=== PATIENT | female | born 1930 | race Caucasian/White ===

== ENCOUNTER 2018-07-13 09:53 | Inpatient (IN) ==
[2018-07-13] MEDS ORDERED: Isovue-370 500 ML INFUS..BTL IV ONE (10:28)
[2018-07-13 11:02] LABS: Basophils # 0.1 K/mcL (0.0-0.2); Basophils % 0.5 %; Eosinophils # 0.2 K/mcL (0.0-0.6); Eosinophils % 1.7 %; Hematocrit 31.6 % (35.3-44.9); Hemoglobin 10.2 g/dL (11.5-15.4); Immature Granulocytes % 2.9 % (0-4); Lymphocytes # 0.8 K/mcL (0.6-4.6); Lymphocytes % 7.1 %; Mean Corpuscular HGB Conc 32.3 g/dL (31.6-35.5); Mean Corpuscular Volume 92.9 fL (83.0-100.0); Mean Platelet Volume 9.8 fL (9.4-12.4); Monocytes # 0.7 K/mcL (0.0-1.3); Monocytes % 5.9 %; Neutrophils # 9.2 K/mcL (1.6-8.9); Platelet Count 343 K/mcL (140-400); Red Cell Distribution Width 13.2 % (11.5-14.5); Segmented Neutrophils % 81.9 %
[2018-07-13 11:06] LABS: Albumin 3.8 g/dL (3.5-5.7); Bilirubin,Total 0.3 mg/dL (0.3-1.0); Calcium 9.9 mg/dL (8.6-10.3); Globulin 3.7 g/dL (2.4-3.5); Potassium 4.4 mEq/L (3.5-5.1); Total Protein 7.5 g/dL (6.4-8.9)
--- NOTE | 2018-07-13 11:07 | Emergency Department Note ---
Disposition Clinical Impression: Abscess of great toe, right Disposition: Admitted As Inpatient Extremity Problem HPI - General Chief complaint: ED Extremity Problem,Nontraumatic Stated complaint: R Greater Toe Injury Time Seen by Provider: 07/13/18 10:00 Source: patient Mode of arrival: ambulatory Limitations: no limitations Nursing Notes Reviewed: Yes Vital Signs Reviewed: Yes - History of Present Illness HPI Narrative: 88 year old female with a history of diabetes presents with right great toe swelling. Patient stated she had a injury and fracture in right great toe two weeks ago. Pt was prescribed Keflex 500 mg three times a day from her primary care physician. Pt stated she has persistent swelling toe and foot. Dr. Flores visited her last night at her home and suggested her to come to ER. Pt denied chills and fever. No smoking. Pt Subjective Complaint: extremity pain, extremity swelling Onset (ago): week(s) (2) Consistency: Worsening Pain Scale: 0 - Related Data Home Medications Medication Instructions Recorded Confirmed RX: Aspirin [Adult Low Dose 81 mg PO DAILY 10/09/15 07/13/18 Aspirin EC] RX: Insulin Aspart Prot/Insuln Asp 20 unit SQ BID 10/09/15 07/13/18 [Novolog Mix 70-30 Vial] RX: Levothyroxine [Synthroid] 125 mcg PO DAILY 10/09/15 07/13/18 RX: Montelukast [Singulair] 10 mg PO DAILY 10/09/15 07/13/18 RX: Potassium Chloride [K-Tab ER] 10 meq PO DAILY 10/09/15 07/13/18 RX: Pyridostigmine Br [Mestinon] 60 mg PO QID 10/09/15 07/13/18 RX: predniSONE [PredniSONE] 7.5 mg PO DAILY 10/09/15 07/13/18 Amlodipine Besylate/Benazepril 10 - 20 mg PO DAILY 04/08/16 07/13/18 [Lotrel 5-40 mg Capsule] Furosemide [Lasix] 40 mg PO BID 04/08/16 07/13/18 Cholecalciferol (D-3) [Vitamin D] 5,000 unit PO DAILY 05/07/17 07/13/18 Pantoprazole Sodium [Protonix] 40 mg PO DAILY 05/07/17 07/13/18 Ipratropium/Albuterol Sulfate 3 ml IH Q4H PRN 07/13/18 07/13/18 [Iprat-Albut 0.5-3(2.5) mg/3 ml] RX: Anastrozole [Arimidex] 1 mg PO DAILY 07/13/18 07/13/18 RX: cephALEXin [Keflex] 500 mg PO TID 07/13/18 07/13/18 Previous Rx's Medication Instructions Recorded Hydrocodone/Acetaminophen [[place] 1 tab PO Q6H PRN #15 tab 04/03/16 5-325 Tablet] Allergies Allergy/AdvReac Type Severity Reaction Status Date / Time acetaminophen [From Ultracet] Allergy See Verified 10/09/15 03:29 Comments amlodipine [From Norvasc] Allergy See Verified 10/09/15 03:29 Comments aspirin [From Percodan] Allergy See Verified 10/09/15 03:29 Comments azithromycin [From Zithromax] Allergy See Verified 10/09/15 03:29 Comments ceftriaxone [From Rocephin] Allergy See Verified 10/09/15 03:29 Comments clonidine Allergy See Verified 10/09/15 03:29 Comments codeine Allergy See Verified 10/09/15 03:29 Comments doxazosin [From Cardura] Allergy See Verified 10/09/15 03:29 Comments levofloxacin [From Levaquin] Allergy See Verified 10/09/15 03:29 Comments losartan [From Cozaar] Allergy See Verified 10/09/15 03:29 Comments morphine Allergy See Verified 10/09/15 03:29 Comments nitrofurantoin Allergy See Verified 10/09/15 03:29 Comments Oxycodone [From Percodan] Allergy See Verified 10/09/15 03:29 Comments Penicillins Allergy See Verified 10/09/15 03:29 Comments Sulfa (Sulfonamide Allergy See Verified 10/09/15 03:29 Antibiotics) Comments Terazosin [From Hytrin] Allergy See Verified 10/09/15 03:29 Comments terfenadine [From Seldane] Allergy See Verified 10/09/15 03:29 Comments tramadol [From Ultracet] Allergy See Verified 10/09/15 03:29 Comments Constitutional: Denies: fever Eyes: Denies: eye pain ENT ED: Denies: ear pain Cardiovascular: Denies: chest pain Respiratory: Denies: cough Gastrointestinal: Denies: abdominal pain Genitourinary: Denies: urgency Musculoskeletal: Denies: back pain Integumentary: Reports: other (right great toe redness, swelling and warmth). Denies: rash Neurological: Denies: headache Psychiatric: Denies: anxiety Endocrine: Denies: fatigue Hematological/Lymphatic: Denies: easy bleeding Allergic/Immunologic: Denies: facial swelling Past Medical History - Past Medical History Medical history: Reports: cancer, diabetes, hyperlipidemia, hypertension Surgical history: Reports: appendectomy, hysterectomy, thyroidectomy Psychiatric history: Reports: no psych history - Social History Smoking Status: Never smoker Smokeless Tobacco Status: No Alcohol use: Reports: none Drug use: Reports: none Physical Exam - General Limitations: no limitations General appearance: alert - Head Head exam: atraumatic - Eye Eye exam: Present: normal appearance - ENT ENT exam: normal exam - Neck Neck exam: Present: normal inspection - Chest Chest inspection: Present: normal inspection - Respiratory Respiratory exam: Present: normal lung sounds bilaterally. Absent: respiratory distress, wheezes - Cardiovascular Cardiovascular exam: Present: regular rate, normal rhythm - Abdominal Exam Abdominal exam: Present: soft - Expanded Lower Extremity Exam Knee exam: Present: normal inspection, full ROM. Absent: tenderness, swelling Ankle exam: Present: normal inspection, full ROM. Absent: tenderness, swelling Foot/toe exam: Present: full ROM, swelling (diffused right great toe and dorsal side foot swelling, erythema, warmth, no tender to palpation, two small opening in media side great toe with purulent drainage). Absent: normal inspection, tenderness Neurovascular/Tendon exam: Present: normal capillary refill - Back Exam Back exam: Present: normal inspection - Neurological Exam Neurological exam: Present: alert, oriented X3 - Psychiatric Psychiatric exam: Present: normal affect, normal mood - Skin Skin exam: Present: warm. Absent: intact (see extremity exam) Course Vital Signs Temperature 98.1 F 07/13/18 10:00 Pulse Rate 85 07/13/18 10:00 Respiratory Rate 19 07/13/18 10:00 Blood Pressure 146/75 07/13/18 10:00 O2 Sat by Pulse Oximetry 96 07/13/18 10:00 Temperature 98.1 F 07/13/18 10:13 Pulse Rate 76 07/13/18 11:45 Respiratory Rate 17 07/13/18 11:45 Blood Pressure 138/60 07/13/18 11:45 O2 Sat by Pulse Oximetry 97 07/13/18 11:45 Oxygen Delivery Oxygen Delivery Room Air Extremity Problem, Nontraumati - MDM Narrative Medical decision making narrative: 88 year old female with history of diabetes and previous right great toe fracture presents with worsening swelling. Physical exam: right great toe diffused swelling, erythema, warmth, no tender to palpation, two small opening in media side right great toe with purulent drainage, normal capillary refill time. Labs: elevated white cell (11), ESR (95), and CRP (130). No acute change in foot xray. Spoke with orthopedics Dr. Guo. He also concerns of possible osteomylitis. He suggested to admit patient, ordered MRI, and get blood culture. Antibiotics started in ER. Spoke with hospitalist Dr. Benavides, pt is accepted. Dr. Loza saw the patient and agrees the above plan. - Lab Data Lab results reviewed: Yes I reviewed the patient's lab results. Result diagrams: 07/13/18 10:34 07/13/18 10:34 Lab Results 07/13/18 07/13/18 07/13/18 Range/Units 10:34 10:34 10:34 WBC 11.2 H (4.3-11.1) K/mcL RBC 3.40 L (3.82-4.97) M/mcL Hgb 10.2 L (11.5-15.4) g/dL Hct 31.6 L (35.3-44.9) % MCV 92.9 (83.0-100.0) fL MCH 30.0 (28.0-33.3) pg MCHC 32.3 (31.6-35.5) g/dL RDW 13.2 (11.5-14.5) % Plt Count 343 (140-400) K/mcL MPV 9.8 (9.4-12.4) fL Immature Gran % 2.9 (0-4) % Seg Neutrophils % 81.9 % Lymphocytes % 7.1 % Monocytes % 5.9 % Eosinophils % 1.7 % Basophils % 0.5 % Neutrophils # 9.2 H (1.6-8.9) K/mcL Lymphocytes # 0.8 (0.6-4.6) K/mcL Monocytes # 0.7 (0.0-1.3) K/mcL Eosinophils # 0.2 (0.0-0.6) K/mcL Basophils # 0.1 (0.0-0.2) K/mcL ESR (0-15) mm/hr Sodium 139 (136-145) mEq/L Potassium 4.4 (3.5-5.1) mEq/L Chloride 104 (98-107) mEq/L Carbon Dioxide 24 (23-29) mEq/L BUN 67 H (8-23) mg/dL Creatinine 2.16 H (0.60-1.20) mg/dL Est GFR ( Amer) 26 L (> 60) Est GFR (Non-Af Amer) 22 L (> 60) BUN/Creatinine Ratio 31 H (6-26) Glucose 111 H (70-105) mg/dL Calculated Osmolality 308 H (280-300) Lactic Acid 1.3 (0.5-2.2) mmol/L Calcium 9.9 (8.6-10.3) mg/dL Total Bilirubin 0.3 (0.3-1.0) mg/dL AST 16 (13-39) Units/L ALT 17 (7-52) Units/L Alkaline Phosphatase 81 (34-104) Units/L C-Reactive Protein 130 H (Less than 10) mg/L Serum Total Protein 7.5 (6.4-8.9) g/dL Albumin 3.8 (3.5-5.7) g/dL Globulin 3.7 H (2.4-3.5) g/dL Albumin/Globulin Ratio 1.0 L (1.1-2.2) 07/13/18 Range/Units 10:34 WBC (4.3-11.1) K/mcL RBC (3.82-4.97) M/mcL Hgb (11.5-15.4) g/dL Hct (35.3-44.9) % MCV (83.0-100.0) fL MCH (28.0-33.3) pg MCHC (31.6-35.5) g/dL RDW (11.5-14.5) % Plt Count (140-400) K/mcL MPV (9.4-12.4) fL Immature Gran % (0-4) % Seg Neutrophils % % Lymphocytes % % Monocytes % % Eosinophils % % Basophils % % Neutrophils # (1.6-8.9) K/mcL Lymphocytes # (0.6-4.6) K/mcL Monocytes # (0.0-1.3) K/mcL Eosinophils # (0.0-0.6) K/mcL Basophils # (0.0-0.2) K/mcL ESR 95 H (0-15) mm/hr Sodium (136-145) mEq/L Potassium (3.5-5.1) mEq/L Chloride (98-107) mEq/L Carbon Dioxide (23-29) mEq/L BUN (8-23) mg/dL Creatinine (0.60-1.20) mg/dL Est GFR ( Amer) (> 60) Est GFR (Non-Af Amer) (> 60) BUN/Creatinine Ratio (6-26) Glucose (70-105) mg/dL Calculated Osmolality (280-300) Lactic Acid (0.5-2.2) mmol/L Calcium (8.6-10.3) mg/dL Total Bilirubin (0.3-1.0) mg/dL AST (13-39) Units/L ALT (7-52) Units/L Alkaline Phosphatase (34-104) Units/L C-Reactive Protein (Less than 10) mg/L Serum Total Protein (6.4-8.9) g/dL Albumin (3.5-5.7) g/dL Globulin (2.4-3.5) g/dL Albumin/Globulin Ratio (1.1-2.2) - Radiology Data Radiology results reviewed: Yes I reviewed the patient's radiology results. Attestation Statement - Attestation Attestation: Medical screening examination/treatment/procedure(s) were conducted as a shared visit with non-physician practitioner(s) and myself. I personally evaluated the patient during the encounter. Patient with injury to the great toe. Toe is now significantly swollen with pus drainage. Erythema to the toe as well as the dorsum of the foot. Concern for osteomyelitis. Labs with elevated ESR and CRP. Patient will receive antibiotics and admission.
[2018-07-13] MEDS ORDERED: Ampicillin/Sulbactam 3,000 MG in 0.9 % Sodium Chloride Mini Bag 100 ML IVPB ONE (11:08)
[2018-07-13] MEDS ORDERED: Tdap (Boostrix) Vaccine 0.5 ML SYRINGE IM ONE (11:43)
[2018-07-13] MEDS ORDERED: traMADol 50 MG TABLET PO PRN (14:04)
[2018-07-13] MEDS ORDERED: Naloxone 0.4 MG/ML INJ IVP PRN (14:04)
[2018-07-13] MEDS ORDERED: Vancomycin 1 EACH in 0.9 % Sodium Chloride 250 ML IVPB SCH (15:00)
[2018-07-13] MEDS ORDERED: Dextrose Gel 15 GM/37.5 ML TUBE PO PRN ×2 (16:46)
[2018-07-13] MEDS ORDERED: *HR* Dextrose 50 % in Water (Syg) 50 ML SYRINGE IVP PRN (16:46)
[2018-07-13] MEDS ORDERED: D5% in Water 1,000 ML IVC PRN (16:46)
--- NOTE | 2018-07-13 16:53 | Internal Med History&Physical ---
Date of Encounter: 07/13/18 Time of Encounter: 16:45 Internal Medicine - H&P: HPI Chief complaint: erythema and edema of the right toe Admitted From: Home Plans for Post Hospital Care: Home History of present illness: Ms. Young is a 88 year old female past medical history significant for thyroid cancer status post thyroidectomy 2004, hypothyroidism, hypertension, myasthenia gravis, diabetes, breast cancer diagnosed in December 2017, and a spinal stenosis. As per patient about 1 and 1/2 weeks ago she injured her right big toe while she was walking at home. She went to her Pcp office at that time and he started the patient on oral antibiotics due to cellulitis of the right big toe. Toe her PCP went to visit the patient to follow up on her progress, but due to improvement in the erythema, and tenderness of the extremity the PCP recommended the patient to come to the ED for IV antibiotics. The day the patient sustained the injury to the foot, she denies tripping with any object. Also denied pain in the extremity, but she realized she has injured her toe because it kept bleeding. She denies fever, but reports chills. Denies nausea, vomiting. Abdominal pain. Past Med Surg Social Fam HX - Past Medical History Medical history: cancer, diabetes, hyperlipidemia, hypertension Additional medical history: MG, breast cancer, Psychiatric history: no psych history - Past Surgical History Surgical History: appendectomy, hysterectomy, thyroidectomy - Social History Smoking Status: Never smoker Smokeless Tobacco Status: No Alcohol use: none Drug use: none Internal Medicine - H&P: Meds Aspirin [Adult Low Dose Aspirin EC] 81 mg PO DAILY 10/09/15 [History] Insulin Aspart Prot/Insuln Asp [Novolog Mix 70-30 Vial] 20 unit SQ BID 10/09/15 [History] Levothyroxine [Synthroid] 125 mcg PO DAILY 10/09/15 [History] Montelukast [Singulair] 10 mg PO DAILY 10/09/15 [History] Potassium Chloride [K-Tab ER] 10 meq PO DAILY 10/09/15 [History] Pyridostigmine Br [Mestinon] 60 mg PO QID 10/09/15 [History] predniSONE [PredniSONE] 7.5 mg PO DAILY 10/09/15 [History] Hydrocodone/Acetaminophen [[place] 5-325 Tablet] 1 tab PO Q6H PRN #15 tab 04/03/16 [Rx] Amlodipine Besylate/Benazepril [Lotrel 5-40 mg Capsule] 10 - 20 mg PO DAILY 04/08/16 [History] Furosemide [Lasix] 40 mg PO BID 04/08/16 [History] Cholecalciferol (D-3) [Vitamin D] 5,000 unit PO DAILY 05/07/17 [History] Pantoprazole Sodium [Protonix] 40 mg PO DAILY 05/07/17 [History] Anastrozole [Arimidex] 1 mg PO DAILY 07/13/18 [History] Ipratropium/Albuterol Sulfate [Iprat-Albut 0.5-3(2.5) mg/3 ml] 3 ml IH Q4H PRN 07/13/18 [History] cephALEXin [Keflex] 500 mg PO TID 07/13/18 [History] Allergy/AdvReac Type Severity Reaction Status Date / Time acetaminophen [From Ultracet] Allergy See Verified 10/09/15 03:29 Comments amlodipine [From Norvasc] Allergy See Verified 10/09/15 03:29 Comments aspirin [From Percodan] Allergy See Verified 10/09/15 03:29 Comments azithromycin [From Zithromax] Allergy See Verified 10/09/15 03:29 Comments ceftriaxone [From Rocephin] Allergy See Verified 10/09/15 03:29 Comments clonidine Allergy See Verified 10/09/15 03:29 Comments codeine Allergy See Verified 10/09/15 03:29 Comments doxazosin [From Cardura] Allergy See Verified 10/09/15 03:29 Comments levofloxacin [From Levaquin] Allergy See Verified 10/09/15 03:29 Comments losartan [From Cozaar] Allergy See Verified 10/09/15 03:29 Comments morphine Allergy See Verified 10/09/15 03:29 Comments nitrofurantoin Allergy See Verified 10/09/15 03:29 Comments Oxycodone [From Percodan] Allergy See Verified 10/09/15 03:29 Comments Penicillins Allergy See Verified 10/09/15 03:29 Comments Sulfa (Sulfonamide Allergy See Verified 10/09/15 03:29 Antibiotics) Comments Terazosin [From Hytrin] Allergy See Verified 10/09/15 03:29 Comments terfenadine [From Seldane] Allergy See Verified 10/09/15 03:29 Comments tramadol [From Ultracet] Allergy See Verified 10/09/15 03:29 Comments All Systems PM: A 10-system review of systems was performed and is negative for pertinent findings except as documented above in the HPI. - Constitutional Constitutional: chills, weakness, no fever(s), no malaise - EENT Eyes: no blurry vision - Cardiovascular Cardiovascular ROS IM: no chest pain, no dyspnea, no dyspnea on exertion, no irregular heart rhythm, no lightheadedness, no orthopnea, no palpitations - Respiratory Respiratory: no wheezing, no pain on inspiration, no excessive phlegm production - Gastrointestinal Gastrointestinal: no abdominal pain, no melena, no nausea, no vomiting - Genitourinary Genitourinary: no dysuria, no urinary frequency, no urinary urgency, no vaginal dryness - Musculoskeletal Musculoskeletal ROS IM: no back pain - Neurological Neurological ROS: no abnormal movements, no lack of coordination - Psychiatric Psychiatric: no difficulty concentrating, no mood swings, no panic attacks - Endocrine Endocrine IM: no cold intolerance, no fatigue, no polydipsia, no polyphagia, no polyuria - Hematologic/Lymphatic Hematologic/Lymphatic: no easy bruising, no lymphadenopathy - Allergic/Immunologic Allergic/Immunologic: no wheezing Additional comments: Rest of the review of system negative. - Constitutional Vitals: Temp Pulse Resp BP Pulse Ox 98.0 F 80 15 136/67 91 07/13/18 14:40 07/13/18 14:40 07/13/18 14:40 07/13/18 14:40 07/13/18 14:47 Exam: Vitals: Reviewed. General: Alert and oriented x4. In mild distress due to right toe discomfort. Skin:cNormal color, no rash, no lesions. HEENT:cEOM, pupils equal, round and reactive. Cardiovascular: RRR, Normal S1 & S2, no rubs, murmurs or gallops. Lungs: Clear to auscultation bilaterally, no wheezes or crackles. Abdomen: Soft, non-tender, no rigidity. Extremities: Erythema, warm and mild tenderness in the right big toe. Neurological: Normal cognition and motor skills. Rest of the physical exam is non contributory Internal Med - H&P Results - Labs CBC & Chem 7: 07/13/18 10:34 07/13/18 10:34 Labs: Short CBC 07/13/18 Range/Units 10:34 WBC 11.2 H (4.3-11.1) K/mcL Hgb 10.2 L (11.5-15.4) g/dL Hct 31.6 L (35.3-44.9) % Plt Count 343 (140-400) K/mcL Neutrophils # 9.2 H (1.6-8.9) K/mcL BMP 07/13/18 10:34 Sodium 139 Potassium 4.4 Chloride 104 Carbon Dioxide 24 BUN 67 H Creatinine 2.16 H Glucose 111 H Calcium 9.9 Liver Function 07/13/18 Range/Units 10:34 Total Bilirubin 0.3 (0.3-1.0) mg/dL AST 16 (13-39) Units/L ALT 17 (7-52) Units/L Alkaline Phosphatase 81 (34-104) Units/L Albumin 3.8 (3.5-5.7) g/dL - Impressions ITS Impressions Foot X-Ray 07/13/18 11:02 IMPRESSION: 1. No new osseous abnormality of the right foot. Stable transverse fracture of the 1st distal phalanx. 2. Diffuse soft tissue swelling. No obvious subcutaneous gas. D/ / 07/13/2018 11:36:21 Wendy Gardiner MD / Luli Parada Interpreting Provider: Wendy Gardiner MD Foot MRI 07/13/18 11:52 IMPRESSION: 1. Small heterogeneously T2 hyperintense focus along the medial aspect of the great toe at the level of the 1st interphalangeal joint measuring 0.4 x 1.1 x 1.0 cm. This appears to extend to a small wound along the skin surface. Findings may reflect a small abscess versus phlegmon given history. 2. Nondisplaced transversely oriented fracture of the distal 1st phalanx. 3. Patchy marrow edema of the proximal 1st phalanx without corresponding decreased T1 signal. Findings favored to reflect reactive noninfectious osteitis. 4. Tenosynovitis of the distal extensor hallucis longus tendon and to a lesser extent the flexor hallucis longus tendon. 5. Diffuse soft tissue edema which is nonspecific. Correlate clinically for cellulitis. D/ / Vinayak Mendez MD / Vinayak Mendez MD Interpreting Provider: Vinayak Mendez MD - Assessment and plan (1) Abscess of great toe, right Current Visit: Yes Status: Acute Assessment and plan: Cellulitis of the right big toe Plan started on broad spectrum antibiotics on Vancomycin per pharmacy dosing and Piperacillin/Tazobactam 3.375mg/IV Q8HRs wound care consult podiatry consult Tramadol 50mg/PO Q6HRs PRN for pain control ESR CRP MRI of the right foot ordered. (2) Hypothyroidism Current Visit: Yes Status: Chronic Assessment and plan: We will continue home medication. On levothyroxine 125 mcg/PO daily Qualifiers: Hypothyroidism type: postoperative Qualified Code(s): E89.0 - Postprocedural hypothyroidism (3) Myasthenia gravis Current Visit: Yes Status: Chronic Assessment and plan: We will resume home meds. Continue prednisone 7.5 mg by mouth daily On pyridostigmine 60mg/PO Q8HRs (4) Diabetes mellitus Current Visit: No Status: Chronic Assessment and plan: Plan Levemir 10units BID Lispro low dose sliding scale Lispro 4 units AC carbs controlled diet Qualifiers: Diabetes mellitus type: type 2 Diabetes mellitus complication status: with kidney complications Diabetes mellitus complication detail: with chronic kidney disease Chronic kidney disease stage: stage 3 (moderate) Qualified Code(s): E11.22 - Type 2 diabetes mellitus with diabetic chronic kidney disease; N18.3 - Chronic kidney disease, stage 3 (moderate); 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 On amlodipine 10 mg by mouth daily. And furosemide 40mg by mouth daily (6) Stage III chronic kidney disease Current Visit: No Status: Chronic Assessment and plan: Renal protective strategies. We will resume furosemide 40 mg by mouth daily. - Time Spent With Patient Total time spent is greater than 50% in coordination of care (as documented) at patient's floor/unit and/or counseling patient: Greater than 35 minutes (45)
[2018-07-13] MEDS: Piperacillin/Tazobactam 3.375 GM in 0.9 % Sodium Chloride Mini Bag 100 ML IVPB SCH (16:57)
--- NOTE | 2018-07-13 17:49 | Podiatry Consult Note ---
Date of Encounter: 07/13/18 Time of Encounter: 12:00 Assessment and Plan (1) Abscess of great toe, right Current visit: Yes Status: Acute MRI was obtained of the right foot which showed possible abscess to the medial aspect of the 1st phalxnx Examined at bedside Patient is neuropathic and reports minimal pain There is a noted fluctuant mass to the medial aspect of the right great toe at the level of the proximal phalynx This was painted with betadine and punctured with a sharp 18g needle, a large amount of bloody drainage was released from area without any noted purulent drainage- this would indicate probable hematoma opposed to abscess of this area There is superficial cellulitis noted to great toe and extending onto dorsal aspect of foot There is maceration and peeling skin noted to the interdigital webspace of toes #1 and #2 right which may be possible entry point of bacterial and is likely related to edema s/p injury and noted fracture and reported drainage There is warmth noted to toe No visible malignment Cleansed again with saline, painted with betadine, adaptic and 4x4 applied Wound cultures were obtained from released bloody drainage Continue IV antibiotic therapy Will reassess tomorrow at bedside, if continued abscess is noted will misael at bedside with 15 blade Explained plan to patient Verbalized understanding. (2) Diabetes mellitus Current visit: No Status: Chronic Qualifiers: Diabetes mellitus type: type 2 Diabetes mellitus long term care administrator insulin use: unspecified long term care administrator insulin use status Diabetes mellitus complication status: with kidney complications Diabetes mellitus complication detail: with chronic kidney disease Chronic kidney disease stage: unspecified stage Qualified Code(s): E11.22 - Type 2 diabetes mellitus with diabetic chronic kidney disease History of Present Illness HPI: Mrs Young is a 88 year old female with a H sig for thyroidectomy, hypertension, myasthenia gravis, diabetes with profound diabetic neuropathy, breast cancer diagnosed in December 2017, and a spinal stenosis. Patient reports that a week or two ago she bumped her right great toe- denies pain as patient is neuropathic- states there were "no open areas" however reports there was a large amount of bleeding from the toe. To clarify, asked if she seen any open areas, she stated no, and that she did not know where the blood was coming from. She went to her PCP office at that time and was started on oral antibiotics due to cellulitis of the right great toe. States her PCP made a home visit and due to increased edema and erythema recommended her to come to the ED. Patient reports that she is currently feeling ok. States there is some slight aching to the toe however minimal due to neuropathy. Patient is a poor historian and details of trauma are vague. Xrays and MRI were obtained in the ED as well as blood cultures. Patient was started on IV antibiotic therapy and admitted for further management. Patient denies any fevers, chills, n/v or fls. Patient denies any calf pain or sob. Past Med Surg Social Fam HX - Past Medical History Medical history: cancer, diabetes, hyperlipidemia, hypertension Additional medical history: MG, breast cancer, Psychiatric history: no psych history - Past Surgical History Surgical History: appendectomy, hysterectomy, thyroidectomy - Social History Smoking Status: Never smoker Smokeless Tobacco Status: No Alcohol use: none Drug use: none - Family History Mother Hx Family Endocrine Disorder: Yes (DM) Medications and Allergies RX: Aspirin [Adult Low Dose Aspirin EC] 81 mg PO DAILY 10/09/15 [History] RX: Insulin Aspart Prot/Insuln Asp [Novolog Mix 70-30 Vial] 20 unit SQ BID 10/09/15 [History] RX: Levothyroxine [Synthroid] 125 mcg PO DAILY 10/09/15 [History] RX: Montelukast [Singulair] 10 mg PO DAILY 10/09/15 [History] RX: Potassium Chloride [K-Tab ER] 10 meq PO DAILY 10/09/15 [History] RX: Pyridostigmine Br [Mestinon] 60 mg PO QID 10/09/15 [History] RX: predniSONE [PredniSONE] 7.5 mg PO DAILY 10/09/15 [History] Hydrocodone/Acetaminophen [[place] 5-325 Tablet] 1 tab PO Q6H PRN #15 tab 04/03/16 [Rx] Amlodipine Besylate/Benazepril [Lotrel 5-40 mg Capsule] 10 - 20 mg PO DAILY 04/08/16 [History] Furosemide [Lasix] 40 mg PO BID 04/08/16 [History] Cholecalciferol (D-3) [Vitamin D] 5,000 unit PO DAILY 05/07/17 [History] Pantoprazole Sodium [Protonix] 40 mg PO DAILY 05/07/17 [History] Ipratropium/Albuterol Sulfate [Iprat-Albut 0.5-3(2.5) mg/3 ml] 3 ml IH Q4H PRN 07/13/18 [History] RX: Anastrozole [Arimidex] 1 mg PO DAILY 07/13/18 [History] RX: cephALEXin [Keflex] 500 mg PO TID 07/13/18 [History] Allergy/AdvReac Type Severity Reaction Status Date / Time acetaminophen [From Ultracet] Allergy See Verified 10/09/15 03:29 Comments amlodipine [From Norvasc] Allergy See Verified 10/09/15 03:29 Comments aspirin [From Percodan] Allergy See Verified 10/09/15 03:29 Comments azithromycin [From Zithromax] Allergy See Verified 10/09/15 03:29 Comments ceftriaxone [From Rocephin] Allergy See Verified 10/09/15 03:29 Comments clonidine Allergy See Verified 10/09/15 03:29 Comments codeine Allergy See Verified 10/09/15 03:29 Comments doxazosin [From Cardura] Allergy See Verified 10/09/15 03:29 Comments levofloxacin [From Levaquin] Allergy See Verified 10/09/15 03:29 Comments losartan [From Cozaar] Allergy See Verified 10/09/15 03:29 Comments morphine Allergy See Verified 10/09/15 03:29 Comments nitrofurantoin Allergy See Verified 10/09/15 03:29 Comments Oxycodone [From Percodan] Allergy See Verified 10/09/15 03:29 Comments Penicillins Allergy See Verified 10/09/15 03:29 Comments Sulfa (Sulfonamide Allergy See Verified 10/09/15 03:29 Antibiotics) Comments Terazosin [From Hytrin] Allergy See Verified 10/09/15 03:29 Comments terfenadine [From Seldane] Allergy See Verified 10/09/15 03:29 Comments tramadol [From Ultracet] Allergy See Verified 10/09/15 03:29 Comments All Systems Reviewed: as per HPI Physical Exam - Constitutional Vitals: Temp Pulse Resp BP Pulse Ox 98.0 F 80 15 136/67 91 07/13/18 14:40 07/13/18 14:40 07/13/18 14:40 07/13/18 14:40 07/13/18 14:47 Exam: Awake alert and oriented VASCULAR Pulses palpable DP/PT Warm toes to tibia Cap refill <3 seconds No calf pain with manual compression NEUROLOGICAL Minimal sensation to light or moderate touch MUSCULOSKELETAL Muscle strength of foot 5/5 and equal bilaterally, there is minimal movement of right great toe related to edema and reported pain. No gross visual bone malignment of toe #1 right. SKIN: There is a large amount of edema, erythema and warmth surrounding the right great toe and extending onto dorsal aspect of foot. There is maceration noted to dorsal aspect of toe surrounding proximal nail border and to interdigital webspace b/t toe #1 and #2. There is a fluctuant area noted to the medial aspect of the toe just proximal to the nail proximal border. Area measures approx 1.5cmx1.5cm Area was evacuated using sterile 18g needle- a moderate amount of bloody drainage was released without any purulence. No odor noted. No sinus tracts or tunneling. No probe to bone. Closed fracture of toe with evidence of hematoma to the medial aspect of the toe with associated cellulitis of the toe and foot. Results - Labs Result Diagrams: 07/14/18 04:40 07/14/18 04:40 Labs: Abnormal lab results WBC 11.2 K/mcL (4.3-11.1) H 07/13/18 10:34 RBC 3.40 M/mcL (3.82-4.97) L 07/13/18 10:34 Hgb 10.2 g/dL (11.5-15.4) L 07/13/18 10:34 Hct 31.6 % (35.3-44.9) L 07/13/18 10:34 Neutrophils # 9.2 K/mcL (1.6-8.9) H 07/13/18 10:34 ESR 95 mm/hr (0-15) H 07/13/18 10:34 BUN 67 mg/dL (8-23) H 07/13/18 10:34 Creatinine 2.16 mg/dL (0.60-1.20) H 07/13/18 10:34 Est GFR ( Amer) 26 (> 60) L 07/13/18 10:34 Est GFR (Non-Af Amer) 22 (> 60) L 07/13/18 10:34 BUN/Creatinine Ratio 31 (6-26) H 07/13/18 10:34 Glucose 111 mg/dL (70-105) H 07/13/18 10:34 Calculated Osmolality 308 (280-300) H 07/13/18 10:34 C-Reactive Protein 130 mg/L (Less than 10) H 07/13/18 10:34 Globulin 3.7 g/dL (2.4-3.5) H 07/13/18 10:34 Albumin/Globulin Ratio 1.0 (1.1-2.2) L 07/13/18 10:34 H & H 07/13/18 Range/Units 10:34 Hgb 10.2 L (11.5-15.4) g/dL Hct 31.6 L (35.3-44.9) % All other labs normal. Consult Discharge Plan - Plan Referrals: Peter Avila DO [Primary Care Provider] -
[2018-07-13] MEDS: Pyridostigmine Br 60 MG TABLET PO SCH ×2 (18:52→23:38)
[2018-07-13] MEDS: Insulin LISPRO 300 UNITS/3 ML VIAL SQ SCH ×2 (18:53→18:54)
[2018-07-13] MEDS: *HR* Heparin 5,000 UNIT/ML VIAL SQ SCH (18:54)
[2018-07-13] MEDS: Insulin DETEMIR 100 UNIT/ML X5UNITS SQ SCH (20:52)
[2018-07-13] MEDS: Ipratropium/Albuterol Neb 3 ML IH PRN (23:55)
[2018-07-14] MEDS ORDERED: Pyridostigmine Br 60 MG TABLET PO SCH
[2018-07-14] MEDS: Piperacillin/Tazobactam 3.375 GM in 0.9 % Sodium Chloride Mini Bag 100 ML IVPB SCH ×2 (04:31→16:38)
[2018-07-14 05:00] LABS: Basophils # 0.1 K/mcL (0.0-0.2); Basophils % 0.8 %; Eosinophils # 0.3 K/mcL (0.0-0.6); Eosinophils % 3.6 %; Hematocrit 28.7 % (35.3-44.9); Hemoglobin 9.3 g/dL (11.5-15.4); Immature Granulocytes % 2.5 % (0-4); Lymphocytes # 1.5 K/mcL (0.6-4.6); Mean Corpuscular HGB Conc 32.4 g/dL (31.6-35.5); Mean Corpuscular Hemoglobin 30.2 pg (28.0-33.3); Mean Corpuscular Volume 93.2 fL (83.0-100.0); Mean Platelet Volume 9.5 fL (9.4-12.4); Monocytes # 0.8 K/mcL (0.0-1.3); Monocytes % 8.9 %; Neutrophils # 6.2 K/mcL (1.6-8.9); Platelet Count 333 K/mcL (140-400); Red Blood Count 3.08 M/mcL (3.82-4.97); Red Cell Distribution Width 13.2 % (11.5-14.5); Segmented Neutrophils % 68.2 %
[2018-07-14 05:21] LABS: Calcium 9.5 mg/dL (8.6-10.3); Magnesium 2.4 mg/dL (1.6-2.6); Phosphorous 4.5 mg/dL (2.7-4.5)
[2018-07-14] MEDS: *HR* Heparin 5,000 UNIT/ML VIAL SQ SCH ×2 (06:31→18:31)
[2018-07-14] MEDS ORDERED: Insulin LISPRO 300 UNITS/3 ML VIAL SQ SCH (07:30)
[2018-07-14] MEDS: Pyridostigmine Br 60 MG TABLET PO SCH ×3 (08:53→23:16)
[2018-07-14] MEDS: predniSONE 5 MG TABLET PO SCH (08:54)
[2018-07-14] MEDS: Furosemide 40 MG TABLET PO SCH (08:54)
[2018-07-14] MEDS: Insulin DETEMIR 100 UNIT/ML X5UNITS SQ SCH ×2 (08:54→21:26)
[2018-07-14] MEDS: amLODIPine 5 MG TABLET PO SCH (08:54)
[2018-07-14] MEDS: Insulin LISPRO 300 UNITS/3 ML VIAL SQ SCH ×6 (08:55→17:15)
[2018-07-14] MEDS ORDERED: Aminoglycoside Consult 1 EACH MC ONE (10:20)
[2018-07-14] MEDS: Ipratropium/Albuterol Neb 3 ML IH PRN ×2 (13:15→15:51)
--- NOTE | 2018-07-14 13:40 | Podiatry Progress Note ---
Date of Encounter: 07/14/18 Time of Encounter: 12:00 - Assessment and Plan (1) Abscess of great toe, right Current Visit: Yes Status: Acute MRI was obtained of the right foot which showed possible abscess to the medial aspect of the 1st phalxnx Examined at bedside Patient is neuropathic and reports minimal pain Painted toe with betadine, explored cavity of hematoma site once again today with a blunt 18g needle, no drainage noted today, cavity is vacated and empty. There is no noted sinus tracts, tunneling or probe to bone no examination Cellulitis has regressed and improvement in warmth and edema are noted to toe and dorsal aspect of foot Maceration has improved to interdigital webspace of #1 #2 right Blood and wound cultures pending Wound recommend to continue on IV antibiotic therapy x1 more day due to extensive amount of cellulitis on arrival and discharge tomorrow on PO antibiotics if medically stable Cleanse tomorrow with saline, paint with betadine, adaptic and 4x4 to toe/wound and brace toe with coban to keep in alignment and to decrease edema with compression Explained plan to patient Verbalized understanding. Would recommend discharge with a surgical shoe and limited weight bearing Make follow up appointment in podiatry office for next week with or [facility] [place] (2) Diabetes mellitus Current Visit: No Status: Chronic Qualifiers: Diabetes mellitus type: type 2 Diabetes mellitus nursing home insulin use: unspecified nursing home insulin use status Diabetes mellitus complication status: with kidney complications Diabetes mellitus complication detail: with chronic kidney disease Chronic kidney disease stage: unspecified stage Qualified Code(s): E11.22 - Type 2 diabetes mellitus with diabetic chronic kidney disease Subjective Interval history: Following patient in regards to fracture of right great toe with associated cellulitis and hematoma which was evacuated at bedside on 07/13/18. Patient resting comfortably in bed on arrival. States she is in some pain / however reports that she feels better than yesterday. States they have no needed to change her bandage since yesterday. States there was a slight amount of bleeding after evacuation which stopped shortly after. Patient denies any known fevers, chills, n/v or fls. Objective - Vital Signs Vital Signs: Vital Signs Temp Pulse Resp BP Pulse Ox 07/14/18 13:22 14 95 07/14/18 10:59 98.4 F 79 14 137/72 95 07/14/18 06:59 98.3 F 75 15 145/74 94 07/14/18 03:55 98.7 F 76 18 121/64 94 07/13/18 23:55 20 98 07/13/18 23:50 98.2 F 86 20 150/70 97 07/13/18 18:25 98.5 F 72 18 134/68 97 07/13/18 14:47 91 07/13/18 14:40 98.0 F 80 15 136/67 91 Intake and Output 07/13/18 07/14/18 07/14/18 23:59 07:59 15:59 Intake Total 500 / 500 240 / 240 Output Total 900 / 900 0 / 0 Balance 500 / 500 -900 / -900 240 / 240 Intake: IV Fluids 100 / 100 Zosyn 3.375 GM In 0.9 % Sodium 100 / 100 Chloride (Mini-Bag +) 100 ML @ 25 mls/hr IVPB Q12H ENDY Rx#: [id number] Oral 400 / 400 240 / 240 Output: Urine 900 / 900 0 / 0 Other: Meal Lunch Percent of Meal Consumed 25% Blood Glucose* 119 113 130 - Exam Exam: Awake alert and oriented VASCULAR Pulses palpable DP/PT Warm toes to tibia Cap refill <3 seconds No calf pain with manual compression NEUROLOGICAL Minimal sensation to light or moderate touch MUSCULOSKELETAL Muscle strength of foot 5/5 and equal bilaterally, there is minimal movement of right great toe related to edema and reported pain. No gross visual bone malignment of toe #1 right. SKIN: There is an improvement in the amount of edema, erythema and warmth surrounding the right great toe and dorsum of the foot. There is improvement in maceration noted to dorsal aspect of toe surrounding proximal nail border and to interdigital webspace b/t toe #1 and #2. Area which was noted to be fluctuant on prior assessment was explored today and no further drainage was noted, cavity is empty with no probe to bone and all borders are intact without sinus tracts as able to assess. Area was evacuated using sterile 18g needle- a moderate amount of bloody drainage was released without any purulence. No odor noted. No sinus tracts or tunneling. No probe to bone. - Lab Result Diagrams: 07/14/18 04:40 07/14/18 04:40 Labs: Abnormal lab results RBC 3.08 M/mcL (3.82-4.97) L 07/14/18 04:40 Hgb 9.3 g/dL (11.5-15.4) L 07/14/18 04:40 Hct 28.7 % (35.3-44.9) L 07/14/18 04:40 ESR 95 mm/hr (0-15) H 07/13/18 10:34 BUN 65 mg/dL (8-23) H 07/14/18 04:40 Creatinine 2.02 mg/dL (0.60-1.20) H 07/14/18 04:40 Est GFR ( Amer) 28 (> 60) L 07/14/18 04:40 Est GFR (Non-Af Amer) 23 (> 60) L 07/14/18 04:40 BUN/Creatinine Ratio 32 (6-26) H 07/14/18 04:40 POC Glucose 113 mg/dL (70-99) H 07/14/18 07:51 Calculated Osmolality 304 (280-300) H 07/14/18 04:40 C-Reactive Protein 130 mg/L (Less than 10) H 07/13/18 10:34 Globulin 3.7 g/dL (2.4-3.5) H 07/13/18 10:34 Albumin/Globulin Ratio 1.0 (1.1-2.2) L 07/13/18 10:34 Microbiology, Last 48 Hours 07/13/18 10:34 Blood Culture - Preliminary Peripheral Venipuncture Culture is incubating and being continuously monitored for growth. Final report to follow. 07/13/18 10:40 Blood Culture - Preliminary Peripheral Venipuncture Culture is incubating and being continuously monitored for growth. Final report to follow. Consult Discharge Plan - Plan Referrals: Peter Avila DO [Primary Care Provider] -
--- NOTE | 2018-07-14 14:45 | Internal Med Progress Note ---
Hospitalist Progress Note - Encounter Date of Encounter: 07/14/18 Time of Encounter: 14:41 - Subjective Interval History: I have seen and evaluated the patient at bedside. She reports feeling better, but reports shortness of breath. denies chest pain, nausea or vomiting. discomfort in the lower extremity has improved. - Exam Vitals: Temp Pulse Resp BP Pulse Ox 98.4 F 79 14 137/72 95 07/14/18 10:59 07/14/18 10:59 07/14/18 13:22 07/14/18 10:59 07/14/18 13:22 Exam: Vitals: Reviewed. General: Alert and oriented x4. No acute distress Skin: Normal color, no rash, no lesions. Cardiovascular: RRR, Normal S1 & S2, no rubs, murmurs or gallops. Lungs: Clear to auscultation bilaterally, no wheezes or crackles. Abdomen: Soft, non-tender, no rigidity. NABS in all 4 quadrants Extremities: Erythema, warm and mild tenderness in the right big toe. Neurological: Normal cognition. CN II-XII intact. Rest of the physical exam is non contributory - Assessment and Plan (1) Abscess of great toe, right Current Visit: Yes Status: Acute Assessment and Plan: s/p I&D by photographic processor Plan Electrolytic De Scaler recommended to follow up with them within a week of hospital discharge will continue IV antibioitcs for at least 24 more hours due to significant cellulitis of the right foot. On vancomycin per pharmacy dosing and Piperacillin/tazobactam 3.375mg/IV Q8HRs On Tramadol 50 mg by mouth every 6 hours when necessary for pain control. continue with wound care. (2) Cellulitis Current Visit: Yes Status: Acute Assessment and Plan: Plan of care as above. (3) Hypothyroidism Current Visit: Yes Status: Chronic Assessment and Plan: Continue levothyroxine 125 mcg/PO daily (4) Myasthenia gravis Current Visit: Yes Status: Chronic Assessment and Plan: Continue prednisone 7.5 mg by mouth daily. And. Pyridostigmine 60mg/PO Q8HRs (5) Diabetes mellitus Current Visit: No Status: Chronic Assessment and Plan: Blood sugar is well controlled. Continue Levemir 10 units twice a day, and lispro 4 units before meals. On lispro low-dose sliding scale. Carb controlled diet. (6) Essential hypertension Current Visit: No Status: Chronic Assessment and Plan: Blood pressure is well controlled. On furosemide 40 mg by mouth daily and amlodipine 10 mg by mouth daily. (7) Stage III chronic kidney disease Current Visit: No Status: Chronic Assessment and Plan: Continue renal protective strategies. DVT Prophylaxis: Patient is on heparin 5000 units subcutaneous twice a day. - Summary of Assessment and Plan Summary of Assessment and Plan: Patient to remain in the hospital to continue IV antibiotics due to cellulitis of the right lower extremity. Potential discharge tomorrow. - Time Spent with Patient Total time spent is greater than 50% in coordination of care (as documented) at patient's floor/unit and/or counseling patient: Greater than 35 minutes (42) Plan of Care Discussed with: patient (the patient and the nurse.) Internal Medicine: Result - Labs CBC & Chem 7: 07/14/18 04:40 07/14/18 04:40 Labs: Short CBC 07/14/18 Range/Units 04:40 WBC 9.1 (4.3-11.1) K/mcL Hgb 9.3 L (11.5-15.4) g/dL Hct 28.7 L (35.3-44.9) % Plt Count 333 (140-400) K/mcL Neutrophils # 6.2 (1.6-8.9) K/mcL BMP 07/14/18 04:40 Sodium 138 Potassium 4.0 Chloride 105 Carbon Dioxide 24 BUN 65 H Creatinine 2.02 H Glucose 93 Calcium 9.5 - Impressions Impressions Foot X-Ray 07/13/18 11:02 IMPRESSION: 1. No new osseous abnormality of the right foot. Stable transverse fracture of the 1st distal phalanx. 2. Diffuse soft tissue swelling. No obvious subcutaneous gas. D/ / 07/13/2018 11:36:21 Wendy Gardiner MD / Luli Parada Interpreting Provider: Wendy Gardiner MD Consult Discharge Plan - Plan Referrals: Peter Avila DO [Primary Care Provider] - (2) Cellulitis Qualifiers: Site of cellulitis: extremity Site of cellulitis of extremity: toe Laterality: right Qualified Code(s): L03.031 - Cellulitis of right toe (3) Hypothyroidism Qualifiers: Hypothyroidism type: postoperative Qualified Code(s): E89.0 - Postprocedural hypothyroidism (5) Diabetes mellitus Qualifiers: Diabetes mellitus type: type 2 Diabetes mellitus termite treater insulin use: unspecified termite treater insulin use status Diabetes mellitus complication status: with kidney complications Diabetes mellitus complication detail: with chronic kidney disease Chronic kidney disease stage: unspecified stage Qualified Code(s): E11.22 - Type 2 diabetes mellitus with diabetic chronic kidney disease
[2018-07-14] MEDS ORDERED: Ipratropium/Albuterol Neb 3 ML ONE (15:26)
[2018-07-14] MEDS: Ipratropium/Albuterol Neb 3 ML IH SCH ×3 (17:50→21:42)
[2018-07-15] MEDS: Ipratropium/Albuterol Neb 3 ML IH SCH ×3 (00:10→07:39)
[2018-07-15] MEDS: Piperacillin/Tazobactam 3.375 GM in 0.9 % Sodium Chloride Mini Bag 100 ML IVPB SCH (04:22)
[2018-07-15 05:18] LABS: Basophils # 0.1 K/mcL (0.0-0.2); Basophils % 0.5 %; Eosinophils # 0.2 K/mcL (0.0-0.6); Eosinophils % 2.1 %; Hematocrit 27.6 % (35.3-44.9); Immature Granulocytes % 2.3 % (0-4); Lymphocytes # 1.7 K/mcL (0.6-4.6); Lymphocytes % 18.3 %; Mean Corpuscular HGB Conc 32.6 g/dL (31.6-35.5); Mean Corpuscular Hemoglobin 30.3 pg (28.0-33.3); Mean Corpuscular Volume 92.9 fL (83.0-100.0); Mean Platelet Volume 9.5 fL (9.4-12.4); Monocytes # 0.7 K/mcL (0.0-1.3); Monocytes % 7.8 %; Neutrophils # 6.5 K/mcL (1.6-8.9); Platelet Count 327 K/mcL (140-400); Red Blood Count 2.97 M/mcL (3.82-4.97); Red Cell Distribution Width 13.2 % (11.5-14.5)
[2018-07-15 05:35] LABS: Calcium 9.3 mg/dL (8.6-10.3); Magnesium 2.3 mg/dL (1.6-2.6); Phosphorous 4.8 mg/dL (2.7-4.5)
[2018-07-15] MEDS: *HR* Heparin 5,000 UNIT/ML VIAL SQ SCH (06:09)
[2018-07-15 06:32] VITALS: BP 147/71
[2018-07-15] MEDS: Insulin LISPRO 300 UNITS/3 ML VIAL SQ SCH ×2 (08:13→08:14)
[2018-07-15] MEDS: Insulin DETEMIR 100 UNIT/ML X5UNITS SQ SCH (08:15)
[2018-07-15] MEDS: Furosemide 40 MG TABLET PO SCH (08:15)
[2018-07-15] MEDS: Pyridostigmine Br 60 MG TABLET PO SCH (08:15)
[2018-07-15] MEDS: predniSONE 5 MG TABLET PO SCH (08:15)
[2018-07-15] MEDS: amLODIPine 5 MG TABLET PO SCH (08:15)
--- NOTE | 2018-07-15 09:15 | Discharge Summary ---
- NOTES TO OUTPATIENT PROVIDER Notes to Outpatient Provider: Follow-up with podiatry within a week of hospital discharge. Orders not resulted at time of discharge: Pending orders 07/13/18 10:34 Culture,Blood [BC] Stat 07/13/18 17:45 Culture,Anaerobic [RM] Routine Culture,Wound [RM] Routine 07/15/18 12:00 Vancomycin,Random Timed Date of Encounter: 07/15/18 Time of Encounter: 09:13 - Discharge Diagnosis (1) Abscess of great toe, right Priority: Primary Status: Resolved (2) Cellulitis Priority: Primary Status: Acute Qualifiers: Site of cellulitis: extremity Site of cellulitis of extremity: toe Laterality: right Qualified Code(s): L03.031 - Cellulitis of right toe (3) Hypothyroidism Priority: Primary Status: Chronic Qualifiers: Hypothyroidism type: postoperative Qualified Code(s): E89.0 - Postprocedural hypothyroidism (4) Myasthenia gravis Priority: Secondary Status: Chronic (5) Diabetes mellitus Priority: Secondary Status: Chronic Qualifiers: Diabetes mellitus type: type 2 Diabetes mellitus prison insulin use: unspecified long term care pharmacist insulin use status Diabetes mellitus complication status: with kidney complications Diabetes mellitus complication detail: with chronic kidney disease Chronic kidney disease stage: unspecified stage Qualified Code(s): E11.22 - Type 2 diabetes mellitus with diabetic chronic kidney disease (6) Essential hypertension Priority: Secondary Status: Chronic (7) Stage III chronic kidney disease Priority: Secondary Status: Chronic Hospital course: Ms. Young is a 88 year old female past medical history significant for thyroid cancer status post thyroidectomy 2004, hypothyroidism, hypertension, myasthenia gravis, diabetes, breast cancer diagnosed in December 2017, and a spinal stenosis. As per patient about 1 and 1/2 weeks ago she injured her right big toe while she was walking at home. Patient admitted to the hospital for cellulitis of the right foot, abscess of the right great toe. Treated empirically with broad spectrum IV antibiotics. MRI of the foot done: Small heterogeneously T2 hyperintense focus along the medial aspect of the great toe at the level of the 1st interphalangeal joint measuring 0.4 x 1.1 x. Rn Baby consulted, performed I&D. and recommended to discharge with a surgical shoe and limited weight bearing Make follow up appointment in podiatry office for next week with or [facility] [place]. Would culture grew: gram negative rods. Patient being discharged on PO antibiotics to complete 10 days of treatment. Recommended to follow with clinical social work aide within a week of hospital discharge. - Time Spent with Patient Total time spent providing and/or coordinating discharge services: Greater than 30 minutes (35) - Discharge Medications Prescriptions: Amoxicillin/Clavulanate [Augmentin] 875 mg PO BIDWM 7 Days #14 tablet Home Medications: Aspirin [Adult Low Dose Aspirin EC] 81 mg PO DAILY 10/09/15 [History] Insulin Aspart Prot/Insuln Asp [Novolog Mix 70-30 Vial] 20 unit SQ BID 10/09/15 [History] Levothyroxine [Synthroid] 125 mcg PO DAILY 10/09/15 [History] Montelukast [Singulair] 10 mg PO DAILY 10/09/15 [History] Potassium Chloride [K-Tab ER] 10 meq PO DAILY 10/09/15 [History] Pyridostigmine Br [Mestinon] 60 mg PO QID 10/09/15 [History] predniSONE [PredniSONE] 7.5 mg PO DAILY 10/09/15 [History] Hydrocodone/Acetaminophen [Mcintyre 5-325 Tablet] 1 tab PO Q6H PRN #15 tab 04/03/16 [Rx] Amlodipine Besylate/Benazepril [Lotrel 5-40 mg Capsule] 10 - 20 mg PO DAILY 04/08/16 [History] Furosemide [Lasix] 40 mg PO BID 04/08/16 [History] Cholecalciferol (D-3) [Vitamin D] 5,000 unit PO DAILY 05/07/17 [History] Pantoprazole Sodium [Protonix] 40 mg PO DAILY 05/07/17 [History] Anastrozole [Arimidex] 1 mg PO DAILY 07/13/18 [History] Ipratropium/Albuterol Sulfate [Iprat-Albut 0.5-3(2.5) mg/3 ml] 3 ml IH Q4H PRN 07/13/18 [History] Amoxicillin/Clavulanate [Augmentin] 875 mg PO BIDWM 7 Days #14 tablet 07/15/18 [Rx] Allergies/Adverse Reactions: Allergy/AdvReac Type Severity Reaction Status Date / Time acetaminophen [From Ultracet] Allergy See Verified 10/09/15 03:29 Comments amlodipine [From Norvasc] Allergy See Verified 10/09/15 03:29 Comments aspirin [From Percodan] Allergy See Verified 10/09/15 03:29 Comments azithromycin [From Zithromax] Allergy See Verified 10/09/15 03:29 Comments ceftriaxone [From Rocephin] Allergy See Verified 10/09/15 03:29 Comments clonidine Allergy See Verified 10/09/15 03:29 Comments codeine Allergy See Verified 10/09/15 03:29 Comments doxazosin [From Cardura] Allergy See Verified 10/09/15 03:29 Comments levofloxacin [From Levaquin] Allergy See Verified 10/09/15 03:29 Comments losartan [From Cozaar] Allergy See Verified 10/09/15 03:29 Comments morphine Allergy See Verified 10/09/15 03:29 Comments nitrofurantoin Allergy See Verified 10/09/15 03:29 Comments Oxycodone [From Percodan] Allergy See Verified 10/09/15 03:29 Comments Penicillins Allergy See Verified 10/09/15 03:29 Comments Sulfa (Sulfonamide Allergy See Verified 10/09/15 03:29 Antibiotics) Comments Terazosin [From Hytrin] Allergy See Verified 10/09/15 03:29 Comments terfenadine [From Seldane] Allergy See Verified 10/09/15 03:29 Comments tramadol [From Ultracet] Allergy See Verified 10/09/15 03:29 Comments Date of admission: 07/13/18 14:04 Primary care physician: Peter Avila DO Consults: 07/13/18 11:52 Consult to Orthopedic Surgery [CONS] Stat Consulting Provider: [facility] Reason for Consult: possible osteomyelitis Call Completed: Yes 07/13/18 16:44 Consult to Podiatry [CONS] Routine Consulting Provider: [facility] Reason for Consult: Small heterogeneously T2 hyperintense focus along the medial aspect of the great toe at the level of the 1st interphalangeal joint measuring 0.4 x 1.1 x 1.0 cm. This appears to extend to a small wound along the skin surface. Findings may reflect a small abscess versus phlegmon given history. Call Completed: No - Constitutional Vitals: Temp Pulse Resp BP Pulse Ox 98.0 F 65 15 147/71 96 1129/18 06:28 07/15/18 06:28 07/15/18 06:28 07/15/18 06:28 07/15/18 06:28 Exam: Vitals: Reviewed. General: Alert and oriented x4. No acute distress Skin: Normal color, no rash, no lesions. Cardiovascular: RRR, Normal S1 & S2, no rubs, murmurs or gallops. Lungs: Clear to auscultation bilaterally, no wheezes or crackles. Abdomen: Soft, non-tender, no rigidity. NABS in all 4 quadrants Extremities: Erythema, warm and mild tenderness in the right big toe. Neurological: Normal cognition. CN II-XII intact. Rest of the physical exam is non contributory - Patient Status Disposition: Home, Self-Care Condition: Good Functional capacity at discharge: independent ambulation Overall status at discharge: patient is progressing back to baseline - Discharge Instructions Follow Up With: Peter Avila DO [Primary Care Provider] - 07/20/18 11:00 am () Ant Guo DPM [Partnered Physician] - 07/19/18 8:45 am - Diet and Activity Activity: resume usual activities as tolerated Diet: low salt diet
== END 2018-07-15 10:21 | disposition home or self-care (01) | DRG 603 ==
LOC: 3BNU 09:53 → EMEROOARM 09:53 → 3BNU 12:58 → SUATTDRO 14:04 → 3ANU 14:14
PROVIDERS: ADMIT Internal Medicine Cardiovascular Disease; ATTEND Internal Medicine

== ENCOUNTER 2020-05-31 07:02 | Inpatient (IN) ==
[2020-05-31] MEDS ORDERED: Ondansetron 4 MG/2 ML VIAL IVP ONE (08:37)
[2020-05-31] MEDS ORDERED: Isovue-370 500 ML BOTTLE IVP ONE (08:37)
[2020-05-31 09:21] LABS: Basophils # 0.1 K/mcL (0.0-0.2); Basophils % 0.3 %; Eosinophils # 0.1 K/mcL (0.0-0.6); Eosinophils % 0.7 %; Hematocrit 30.4 % (35.3-44.9); Hemoglobin 9.7 g/dL (11.5-15.4); Immature Granulocytes % 1.8 % (0-4); Lymphocytes # 0.9 K/mcL (0.6-4.6); Lymphocytes % 5.7 %; Mean Corpuscular HGB Conc 31.9 g/dL (31.6-35.5); Mean Corpuscular Hemoglobin 29.8 pg (28.0-33.3); Mean Corpuscular Volume 93.3 fL (83.0-100.0); Mean Platelet Volume 9.4 fL (9.4-12.4); Monocytes # 0.9 K/mcL (0.0-1.3); Monocytes % 5.7 %; Neutrophils # 14.1 K/mcL (1.6-8.9); Platelet Count 316 K/mcL (140-400); Red Blood Count 3.26 M/mcL (3.82-4.97); Red Cell Distribution Width 13.2 % (11.5-14.5); Segmented Neutrophils % 85.8 %; White Blood Count 16.4 K/mcL (4.3-11.1)
[2020-05-31 09:35] LABS: Albumin 3.5 g/dL (3.5-5.7); Bilirubin,Direct 0.1 mg/dL (0.0-0.2); Bilirubin,Indirect 0.2 mg/dL (0.0-1.0); Bilirubin,Total 0.3 mg/dL (0.3-1.0); Calcium 9.3 mg/dL (8.6-10.3); Globulin 3.5 g/dL (2.4-3.5)
[2020-05-31] MEDS ORDERED: Vancomycin 1,250 MG/262.5 ML IV.SOLN IVPB ONE (11:05)
[2020-05-31] MEDS ORDERED: MetroNIDAZOLE 500 MG/100 ML 500 MG/100 ML BAG IVPB ONE (11:05)
[2020-05-31] MEDS ORDERED: Ringers Solution, Lactated 1,000 ML IVC SCH (11:15)
[2020-05-31] MEDS ORDERED: Naloxone 0.4 MG/ML INJ IVP PRN (11:15)
[2020-05-31] MEDS ORDERED: D5% in Water 1,000 ML IVC PRN (11:21)
[2020-05-31] MEDS ORDERED: *HR* Dextrose 50 % in Water (Vial) 50 ML VIAL IVP PRN (11:21)
[2020-05-31] MEDS ORDERED: Dextrose Gel 15 GM/37.5 ML TUBE PO PRN ×2 (11:21)
[2020-05-31] MEDS ORDERED: Ipratropium/Albuterol Neb 3 ML IH ONE (12:15)
[2020-05-31 12:29] LABS: Bilirubin,Urine Negative (Negative); Blood,Urine Negative (Negative); Clarity,Urine Clear (Clear); Color,Urine Light-Yellow (Yellow); Glucose,Urine (UA) Normal (Normal); Hyaline Casts,Urine Few per lpf (None Seen); Ketones,Urine Negative (Negative); Leukocyte Esterase,Urine Trace (Negative); Nitrite,Urine Negative (Negative); PH,Urine 5.5 pH Units (5.0-8.0); Protein,Urine Trace mg/dL (Neg-Trace); RBC,Urine 0-3 per hpf (0-3); Specific Gravity,Urine 1.014 (1.010-1.025); Squamous Epithelial Cell,Urine Few per hpf (None-Few); Urobilinogen,Urine Normal (Normal)
[2020-05-31] MEDS ORDERED: MetroNIDAZOLE 500 MG/100 ML 500 MG/100 ML BAG IVPB SCH (16:00)
[2020-05-31 17:26] LABS: Adenovirus Not Detected (Not Detect); Bordetella Pertussis Not Detected (Not Detect); Chlamydophila pneumoniae Not Detected (Not Detect); Coronavirus 229E Not Detected (Not Detect); Coronavirus HKU1 Not Detected (Not Detect); Coronavirus NL63 Not Detected (Not Detect); Coronavirus OC43 Not Detected (Not Detect); Human Metapneumovirus Not Detected (Not Detect); Human Rhinovirus/Enterovirus Not Detected (Not Detect); Influenza A Subtype 2009 H1 Not Detected (Not Detect); Influenza B Not Detected (Not Detect); Mycoplasma pneumoniae Not Detected (Not Detect); Parainfluenza Virus 1 Not Detected (Not Detect); Parainfluenza Virus 2 Not Detected (Not Detect); Parainfluenza Virus 3 Not Detected (Not Detect); Parainfluenza Virus 4 Not Detected (Not Detect); Respiratory Syncytial Virus Not Detected (Not Detect); SARS-CoV-2 Not Detected (Not Detect)
[2020-05-31] MEDS ORDERED: Fluconazole 400 MG/200 ML 400 MG/200 ML BAG IVPB ONE (17:36)
[2020-05-31] MEDS ORDERED: Meropenem 1,000 MG in Water for inj. (sterile) 20 ML IVP SCH (18:00)
[2020-05-31] MEDS: Insulin LISPRO 300 UNITS/3 ML VIAL SQ SCH ×2 (18:02→18:18)
[2020-05-31] MEDS: *HR* Heparin 5,000 UNIT/ML VIAL SQ SCH (18:17)
[2020-05-31] MEDS: Pantoprazole 40 MG VIAL IVP SCH (18:17)
[2020-05-31] MEDS: Pyridostigmine Br 60 MG TABLET PO SCH (20:27)
[2020-05-31] MEDS ORDERED: Doxycycline 100 MG CAPSULE PO SCH (21:00)
[2020-05-31] MEDS: Albuterol 2.5 MG/3 ML NEBULIZER IH PRN (23:23)
[2020-06-01] MEDS: Pyridostigmine Br 60 MG TABLET PO SCH ×5 (00:30→23:41)
[2020-06-01] MEDS: Aztreonam 1,000 MG in 0.9 % Sodium Chloride Mini Bag 100 ML IVPB SCH ×3 (00:30→23:55)
[2020-06-01] MEDS: Insulin LISPRO 300 UNITS/3 ML VIAL SQ SCH ×5 (00:31→23:41)
[2020-06-01] MEDS: MetroNIDAZOLE 500 MG/100 ML 500 MG/100 ML BAG IVPB SCH ×4 (02:00→23:41)
[2020-06-01 04:51] LABS: Basophils % 0.3 %; Eosinophils % 0.5 %; Hematocrit 28.3 % (35.3-44.9); Immature Granulocytes % 1.7 % (0-4); Lymphocytes % 10.4 %; Mean Corpuscular HGB Conc 31.8 g/dL (31.6-35.5); Mean Corpuscular Hemoglobin 29.6 pg (28.0-33.3); Mean Corpuscular Volume 93.1 fL (83.0-100.0); Mean Platelet Volume 9.4 fL (9.4-12.4); Monocytes % 9.5 %; Platelet Count 283 K/mcL (140-400); Red Blood Count 3.04 M/mcL (3.82-4.97); Red Cell Distribution Width 13.2 % (11.5-14.5); Segmented Neutrophils % 77.6 %; White Blood Count 9.2 K/mcL (4.3-11.1)
[2020-06-01 04:52] LABS: Eosinophils # 0.1 K/mcL (0.0-0.6); Monocytes # 0.9 K/mcL (0.0-1.3); Neutrophils # 7.1 K/mcL (1.6-8.9)
[2020-06-01 05:04] LABS: INR 1.2; Prothrombin Time 13.5 Seconds (9.4-12.1)
[2020-06-01 05:05] LABS: Activated Partial Thrombo Time 24.4 Seconds (26.0-36.0)
[2020-06-01 05:10] LABS: Magnesium 2.1 mg/dL (1.6-2.6); Phosphorous 3.6 mg/dL (2.7-4.5); Potassium 4.1 mEq/L (3.5-5.1)
[2020-06-01] MEDS: *HR* Heparin 5,000 UNIT/ML VIAL SQ SCH ×2 (05:58→17:27)
[2020-06-01] MEDS: predniSONE 5 MG TABLET PO SCH (08:14)
[2020-06-01] MEDS: Pantoprazole 40 MG VIAL IVP SCH (08:20)
[2020-06-01] MEDS: Fluconazole 200 MG/100 ML 200 MG/100 ML BAG IVPB SCH (08:34)
[2020-06-01] MEDS ORDERED: Aspirin Enteric Coated 81 MG Tablet PO SCH (09:00)
[2020-06-01] MEDS: Acetaminophen 325 MG TABLET PO PRN (09:29)
[2020-06-01] MEDS: Budesonide/Formoterol 160/4.5 1 PUFF INH IH SCH ×2 (10:58→22:06)
[2020-06-01] MEDS ORDERED: 0.9 % Sodium Chloride 1,000 ML IVC SCH (13:00)
[2020-06-01] MEDS ORDERED: Pyridostigmine Br 60 MG TABLET PO SCH (18:00)
[2020-06-02 05:40] LABS: Calcium 8.7 mg/dL (8.6-10.3); Potassium 3.9 mEq/L (3.5-5.1)
[2020-06-02] MEDS: *HR* Heparin 5,000 UNIT/ML VIAL SQ SCH ×2 (06:30→18:03)
[2020-06-02] MEDS: Pyridostigmine Br 60 MG TABLET PO SCH ×3 (06:30→18:03)
[2020-06-02] MEDS: Insulin LISPRO 300 UNITS/3 ML VIAL SQ SCH ×3 (06:34→18:04)
[2020-06-02 06:47] LABS: Hematocrit 28.6 % (35.3-44.9); Hemoglobin 8.8 g/dL (11.5-15.4); Mean Corpuscular HGB Conc 30.8 g/dL (31.6-35.5); Mean Corpuscular Hemoglobin 29.4 pg (28.0-33.3); Mean Corpuscular Volume 95.7 fL (83.0-100.0); Mean Platelet Volume 9.6 fL (9.4-12.4); Platelet Count 323 K/mcL (140-400); Red Blood Count 2.99 M/mcL (3.82-4.97); Red Cell Distribution Width 13.2 % (11.5-14.5); White Blood Count 9.4 K/mcL (4.3-11.1)
[2020-06-02] MEDS: MetroNIDAZOLE 500 MG/100 ML 500 MG/100 ML BAG IVPB SCH ×2 (09:03→15:37)
[2020-06-02] MEDS: Fluconazole 200 MG/100 ML 200 MG/100 ML BAG IVPB SCH (09:03)
[2020-06-02] MEDS: predniSONE 5 MG TABLET PO SCH (09:04)
[2020-06-02] MEDS: Pantoprazole 40 MG VIAL IVP SCH (09:04)
[2020-06-02] MEDS: Acetaminophen 325 MG TABLET PO PRN (09:12)
[2020-06-02] MEDS: Budesonide/Formoterol 160/4.5 1 PUFF INH IH SCH ×2 (09:22→20:07)
[2020-06-02] MEDS: Aztreonam 1,000 MG in 0.9 % Sodium Chloride Mini Bag 100 ML IVPB SCH ×2 (12:22→20:01)
[2020-06-02] MEDS ORDERED: Isovue-370 500 ML BOTTLE IVP ONE (16:53)
[2020-06-03] MEDS: Pyridostigmine Br 60 MG TABLET PO SCH ×5 (00:12→23:39)
[2020-06-03] MEDS: MetroNIDAZOLE 500 MG/100 ML 500 MG/100 ML BAG IVPB SCH ×4 (00:12→23:39)
[2020-06-03] MEDS: Insulin LISPRO 300 UNITS/3 ML VIAL SQ SCH ×4 (00:18→18:00)
[2020-06-03] MEDS: Aztreonam 1,000 MG in 0.9 % Sodium Chloride Mini Bag 100 ML IVPB SCH ×3 (02:10→23:40)
[2020-06-03] MEDS: *HR* Heparin 5,000 UNIT/ML VIAL SQ SCH ×2 (06:22→17:59)
[2020-06-03 06:33] LABS: Hematocrit 29.9 % (35.3-44.9); Hemoglobin 9.5 g/dL (11.5-15.4); Mean Corpuscular HGB Conc 31.8 g/dL (31.6-35.5); Mean Corpuscular Hemoglobin 30.2 pg (28.0-33.3); Mean Corpuscular Volume 94.9 fL (83.0-100.0); Mean Platelet Volume 9.5 fL (9.4-12.4); Platelet Count 369 K/mcL (140-400); Red Blood Count 3.15 M/mcL (3.82-4.97); Red Cell Distribution Width 13.2 % (11.5-14.5); White Blood Count 13.4 K/mcL (4.3-11.1)
[2020-06-03] MEDS ORDERED: Isovue-370 500 ML BOTTLE PO ONE (06:43)
[2020-06-03 06:48] LABS: Calcium 9.2 mg/dL (8.6-10.3); Potassium 3.7 mEq/L (3.5-5.1)
[2020-06-03] MEDS: Fluconazole 200 MG/100 ML 200 MG/100 ML BAG IVPB SCH (08:28)
[2020-06-03] MEDS: Pantoprazole 40 MG VIAL IVP SCH (08:29)
[2020-06-03] MEDS: predniSONE 5 MG TABLET PO SCH (08:29)
[2020-06-03] MEDS: Acetaminophen 325 MG TABLET PO PRN (08:41)
[2020-06-03] MEDS: Budesonide/Formoterol 160/4.5 1 PUFF INH IH SCH ×2 (10:04→20:06)
[2020-06-03] MEDS ORDERED: Ondansetron 4 MG/2 ML VIAL IVP PRN (19:49)
[2020-06-04] MEDS: Insulin LISPRO 300 UNITS/3 ML VIAL SQ SCH ×4 (01:01→18:09)
[2020-06-04] MEDS: *HR* Heparin 5,000 UNIT/ML VIAL SQ SCH ×2 (05:07→18:09)
[2020-06-04] MEDS: Pyridostigmine Br 60 MG TABLET PO SCH ×3 (05:08→18:09)
[2020-06-04 05:48] LABS: Hematocrit 30.2 % (35.3-44.9); Hemoglobin 9.6 g/dL (11.5-15.4); Mean Corpuscular HGB Conc 31.8 g/dL (31.6-35.5); Mean Corpuscular Hemoglobin 30.8 pg (28.0-33.3); Mean Corpuscular Volume 96.8 fL (83.0-100.0); Platelet Count 345 K/mcL (140-400); Red Blood Count 3.12 M/mcL (3.82-4.97); Red Cell Distribution Width 13.3 % (11.5-14.5); White Blood Count 14.5 K/mcL (4.3-11.1)
[2020-06-04 06:04] LABS: Calcium 9.2 mg/dL (8.6-10.3); Potassium 3.8 mEq/L (3.5-5.1)
[2020-06-04] MEDS: Budesonide/Formoterol 160/4.5 1 PUFF INH IH SCH ×2 (07:45→20:36)
[2020-06-04] MEDS ORDERED: 0.9 % Sodium Chloride 500 ML ONE (09:28)
[2020-06-04] MEDS ORDERED: *HR* Midazolam HCl 2 MG/2 ML VIAL IVP ONE (09:35)
[2020-06-04] MEDS: predniSONE 5 MG TABLET PO SCH (10:42)
[2020-06-04] MEDS: Pantoprazole 40 MG VIAL IVP SCH (10:43)
[2020-06-04] MEDS: MetroNIDAZOLE 500 MG/100 ML 500 MG/100 ML BAG IVPB SCH ×2 (10:44→18:09)
[2020-06-04] MEDS: Fluconazole 200 MG/100 ML 200 MG/100 ML BAG IVPB SCH (10:44)
[2020-06-04] MEDS: Ringers Solution, Lactated 1,000 ML IVC SCH (10:46)
[2020-06-04] MEDS: Acetaminophen 325 MG TABLET PO PRN (10:54)
[2020-06-04] MEDS: Aztreonam 1,000 MG in 0.9 % Sodium Chloride Mini Bag 100 ML IVPB SCH (15:31)
[2020-06-05] MEDS: MetroNIDAZOLE 500 MG/100 ML 500 MG/100 ML BAG IVPB SCH ×3 (00:07→18:16)
[2020-06-05] MEDS: Pyridostigmine Br 60 MG TABLET PO SCH ×4 (00:08→18:16)
[2020-06-05] MEDS: Insulin LISPRO 300 UNITS/3 ML VIAL SQ SCH ×4 (00:35→17:56)
[2020-06-05] MEDS: Aztreonam 1,000 MG in 0.9 % Sodium Chloride Mini Bag 100 ML IVPB SCH ×2 (01:14→15:17)
[2020-06-05] MEDS: Ringers Solution, Lactated 1,000 ML IVC SCH ×2 (01:20→15:23)
[2020-06-05] MEDS: *HR* Heparin 5,000 UNIT/ML VIAL SQ SCH ×2 (05:52→18:16)
[2020-06-05 06:14] LABS: Hematocrit 27.1 % (35.3-44.9); Hemoglobin 8.3 g/dL (11.5-15.4); Mean Corpuscular HGB Conc 30.6 g/dL (31.6-35.5); Mean Corpuscular Hemoglobin 29.4 pg (28.0-33.3); Mean Corpuscular Volume 96.1 fL (83.0-100.0); Mean Platelet Volume 9.3 fL (9.4-12.4); Platelet Count 294 K/mcL (140-400); Red Blood Count 2.82 M/mcL (3.82-4.97); Red Cell Distribution Width 13.2 % (11.5-14.5); White Blood Count 8.8 K/mcL (4.3-11.1)
[2020-06-05 06:37] LABS: Calcium 8.6 mg/dL (8.6-10.3); Potassium 3.8 mEq/L (3.5-5.1)
[2020-06-05] MEDS: Budesonide/Formoterol 160/4.5 1 PUFF INH IH SCH ×2 (07:46→20:10)
[2020-06-05] MEDS: Pantoprazole 40 MG VIAL IVP SCH (10:52)
[2020-06-05] MEDS: predniSONE 5 MG TABLET PO SCH (10:52)
[2020-06-05] MEDS: Fluconazole 200 MG/100 ML 200 MG/100 ML BAG IVPB SCH (10:53)
[2020-06-05 13:04] LABS: Hematocrit 29.1 % (35.3-44.9); Hemoglobin 9.1 g/dL (11.5-15.4)
[2020-06-05] MEDS: Albuterol 2.5 MG/3 ML NEBULIZER IH PRN (18:24)
[2020-06-06] MEDS: Insulin LISPRO 300 UNITS/3 ML VIAL SQ SCH ×4 (00:47→17:30)
[2020-06-06] MEDS: Aztreonam 1,000 MG in 0.9 % Sodium Chloride Mini Bag 100 ML IVPB SCH ×2 (00:52→13:05)
[2020-06-06] MEDS: Pyridostigmine Br 60 MG TABLET PO SCH ×5 (00:52→23:28)
[2020-06-06] MEDS: MetroNIDAZOLE 500 MG/100 ML 500 MG/100 ML BAG IVPB SCH ×4 (00:53→23:28)
[2020-06-06] MEDS: Albuterol 2.5 MG/3 ML NEBULIZER IH PRN ×2 (03:30→07:09)
[2020-06-06 03:38] LABS: Hematocrit 28.4 % (35.3-44.9); Hemoglobin 9.1 g/dL (11.5-15.4); Mean Corpuscular Hemoglobin 30.4 pg (28.0-33.3); Mean Platelet Volume 8.9 fL (9.4-12.4); Platelet Count 297 K/mcL (140-400); Red Blood Count 2.99 M/mcL (3.82-4.97); Red Cell Distribution Width 13.2 % (11.5-14.5); White Blood Count 7.9 K/mcL (4.3-11.1)
[2020-06-06 03:55] LABS: Calcium 8.5 mg/dL (8.6-10.3); Potassium 3.6 mEq/L (3.5-5.1)
[2020-06-06] MEDS: *HR* Heparin 5,000 UNIT/ML VIAL SQ SCH ×2 (05:36→17:24)
[2020-06-06] MEDS: Budesonide/Formoterol 160/4.5 1 PUFF INH IH SCH ×2 (07:09→20:11)
[2020-06-06] MEDS: predniSONE 5 MG TABLET PO SCH (08:43)
[2020-06-06] MEDS: Pantoprazole 40 MG VIAL IVP SCH (08:44)
[2020-06-06] MEDS: Fluconazole 200 MG/100 ML 200 MG/100 ML BAG IVPB SCH (08:44)
[2020-06-06] MEDS: Cholecalciferol (D-3) 1,000 UNIT (25MCG) TABLET PO SCH (10:23)
[2020-06-06] MEDS: lisinopriL 20 MG TABLET PO SCH (10:23)
[2020-06-06] MEDS: amLODIPine 5 MG TABLET PO SCH (10:24)
[2020-06-06] MEDS: Furosemide 40 MG TABLET PO SCH ×2 (10:33→20:43)
[2020-06-06] MEDS: Ipratropium/Albuterol Neb 3 ML IH SCH ×3 (11:12→20:00)
[2020-06-07] MEDS: Ipratropium/Albuterol Neb 3 ML IH SCH ×7 (00:10→19:47)
[2020-06-07] MEDS: Aztreonam 1,000 MG in 0.9 % Sodium Chloride Mini Bag 100 ML IVPB SCH ×2 (01:12→12:47)
[2020-06-07] MEDS: Pyridostigmine Br 60 MG TABLET PO SCH ×3 (05:50→17:07)
[2020-06-07] MEDS: *HR* Heparin 5,000 UNIT/ML VIAL SQ SCH ×2 (05:50→17:08)
[2020-06-07] MEDS: Budesonide/Formoterol 160/4.5 1 PUFF INH IH SCH ×2 (07:55→19:47)
[2020-06-07] MEDS: Insulin LISPRO 300 UNITS/3 ML VIAL SQ SCH ×3 (08:31→17:08)
[2020-06-07] MEDS: predniSONE 5 MG TABLET PO SCH (08:31)
[2020-06-07] MEDS: lisinopriL 20 MG TABLET PO SCH (08:32)
[2020-06-07] MEDS: Furosemide 40 MG TABLET PO SCH ×2 (08:32→21:54)
[2020-06-07] MEDS: Aspirin Enteric Coated 81 MG Tablet PO SCH (08:32)
[2020-06-07] MEDS: MetroNIDAZOLE 500 MG/100 ML 500 MG/100 ML BAG IVPB SCH (08:33)
[2020-06-07] MEDS: amLODIPine 5 MG TABLET PO SCH (08:33)
[2020-06-07 08:53] LABS: Hemoglobin 9.4 g/dL (11.5-15.4); Mean Corpuscular HGB Conc 31.3 g/dL (31.6-35.5); Mean Corpuscular Hemoglobin 29.7 pg (28.0-33.3); Mean Corpuscular Volume 94.9 fL (83.0-100.0); Mean Platelet Volume 9.2 fL (9.4-12.4); Platelet Count 310 K/mcL (140-400); Red Blood Count 3.16 M/mcL (3.82-4.97); Red Cell Distribution Width 13.3 % (11.5-14.5); White Blood Count 9.3 K/mcL (4.3-11.1)
[2020-06-07] MEDS ORDERED: Furosemide 40 MG TABLET PO SCH (09:00)
[2020-06-07 09:12] LABS: Calcium 8.4 mg/dL (8.6-10.3); Potassium 3.3 mEq/L (3.5-5.1)
[2020-06-07] MEDS: Fluconazole 200 MG/100 ML 200 MG/100 ML BAG IVPB SCH (09:40)
[2020-06-07] MEDS ORDERED: *HR* EPINEPHrine 1 MG/10 ML SYRINGE IVP ONE ×2 (12:45→14:00)
[2020-06-07] MEDS ORDERED: CEFTRIAXONE IVP SCH ×2 (14:00→14:30)
[2020-06-07] MEDS ORDERED: SODIUM CHLORIDE 0.9% IVP SCH ×2 (14:00→14:30)
[2020-06-07] MEDS ORDERED: cefTRIAXone 1,000 MG in 0.9 % Sodium Chloride 10 ML IVP SCH (15:00)
[2020-06-07] MEDS: metroNIDAZOLE 500 MG TABLET PO SCH ×2 (17:07→21:53)
[2020-06-07] MEDS ORDERED: Insulin LISPRO 300 UNITS/3 ML VIAL SQ SCH (21:00)
[2020-06-08] MEDS: Aztreonam 1,000 MG in 0.9 % Sodium Chloride Mini Bag 100 ML IVPB SCH (00:08)
[2020-06-08] MEDS: Pyridostigmine Br 60 MG TABLET PO SCH ×3 (00:09→12:13)
[2020-06-08] MEDS: Ipratropium/Albuterol Neb 3 ML IH SCH ×5 (00:23→15:53)
[2020-06-08 03:44] LABS: Hematocrit 25.7 % (35.3-44.9); Hemoglobin 8.3 g/dL (11.5-15.4); Mean Corpuscular HGB Conc 32.3 g/dL (31.6-35.5); Mean Corpuscular Hemoglobin 30.1 pg (28.0-33.3); Mean Corpuscular Volume 93.1 fL (83.0-100.0); Mean Platelet Volume 9.4 fL (9.4-12.4); Platelet Count 251 K/mcL (140-400); Red Blood Count 2.76 M/mcL (3.82-4.97); Red Cell Distribution Width 13.7 % (11.5-14.5); White Blood Count 9.6 K/mcL (4.3-11.1)
[2020-06-08 04:03] LABS: Calcium 8.2 mg/dL (8.6-10.3); Potassium 3.5 mEq/L (3.5-5.1)
[2020-06-08] MEDS: *HR* Heparin 5,000 UNIT/ML VIAL SQ SCH (05:49)
[2020-06-08] MEDS: Budesonide/Formoterol 160/4.5 1 PUFF INH IH SCH (07:47)
[2020-06-08] MEDS: Insulin LISPRO 300 UNITS/3 ML VIAL SQ SCH ×2 (07:57→12:17)
[2020-06-08] MEDS: amLODIPine 5 MG TABLET PO SCH (07:58)
[2020-06-08] MEDS: Aspirin Enteric Coated 81 MG Tablet PO SCH (07:58)
[2020-06-08] MEDS: metroNIDAZOLE 500 MG TABLET PO SCH ×2 (07:58→16:49)
[2020-06-08] MEDS: predniSONE 5 MG TABLET PO SCH (07:58)
[2020-06-08] MEDS: lisinopriL 20 MG TABLET PO SCH (07:58)
[2020-06-08] MEDS: Furosemide 40 MG TABLET PO SCH (07:58)
[2020-06-08] MEDS ORDERED: Fluconazole 100 MG TABLET PO SCH (09:00)
[2020-06-08 11:25] VITALS: BP 134/65
[2020-06-08] MEDS ORDERED: cefTRIAXone 2,000 MG in 0.9 % Sodium Chloride Mini Bag 100 ML IVP SCH (12:00)
[2020-06-08] MEDS: Cholecalciferol (D-3) 1,000 UNIT (25MCG) TABLET PO SCH (12:13)
[2020-06-08] MEDS ORDERED: cefTRIAXone 2,000 MG in Water for inj. (sterile) 20 ML IVP SCH (13:00)
== END 2020-06-08 17:00 | disposition home health service (06) | DRG 392 ==
LOC: 3ANU 07:02 → EMEROOARM 07:02 → SUATTDRO 14:42 → 3ANU 17:35 → SUATTDRO 06-03 16:52
PROVIDERS: ADMIT Internal Medicine; ATTEND Internal Medicine